=== PATIENT | female | born 1965 | race Caucasian/White ===

== ENCOUNTER → 2017-02-17 | Outpatient (CLI) | payer OTHER ==
--- NOTE | 2017-02-17 13:36 | REP ---
REASON: Known Farley aneurysm status post coiling procedure. COMPARISON: 05/24/2015. There is low signal seen in the tip of the basilar artery consistent with deployment of intravascular coiling. There is no evidence of an aneurysm. The examination is otherwise unchanged from the prior exam. IMPRESSION: Status post coiling procedure for Farley aneurysm as described above. Signed by Micheal Churchill DO 02/17/2017 04:30 P
== END ==
LOC: M RAD 09:57
PROVIDERS: ATTEND Neurological Surgery
DX: I67.1 Cerebral aneurysm, nonruptured (principal)

== ENCOUNTER → 2017-03-07 | Outpatient (CLI) | payer OTHER ==
--- NOTE | 2017-03-07 11:54 | REPMRS ---
Patient History The patient states she had a clinical breast exam in Family history of breast cancer in maternal grandmother. Digital Woman Screen Mammo: March 07, 2017 - Exam #: [id number] Bilateral CC and MLO view(s) were taken. Technologist: Esha Christian, Technologist Prior study comparison: February 05, 2011, digital bilateral screening mammo performed at [facility]. FINDINGS: The breast tissue is extremely dense which could obscure a lesion on mammography. There is no evidence of cancer on this mammogram. No significant changes when compared with prior studies. ASSESSMENT: BI-RADS/ACR category 2 mammogram. Benign finding(s). Given the dense breast parenchyma and family history, MRI of the breasts should be considered. Recommendation Routine screening mammogram of both breasts in 1 year (for women over age 40). This mammogram was interpreted with the aid of an FDA-approved computer-aided dectection system. Electronically Signed By: Nj Roberts MD 03/07/17 [id number]
== END ==
LOC: M WHC 08:25
PROVIDERS: ATTEND Nurse Practitioner Women's Health
DX: Z12.31 Encounter for screening mammogram for malignant neoplasm of breast (principal); Z80.3 Family history of malignant neoplasm of breast; R92.2 Inconclusive mammogram

== ENCOUNTER → 2017-03-07 | Outpatient (REF) | payer OTHER | LOC: M SFHCWAGY 09:14 | PROVIDERS: ATTEND Nurse Practitioner Women's Health | DX: Z12.4 Encounter for screening for malignant neoplasm of cervix (principal) ==

== ENCOUNTER → 2017-06-06 | Outpatient (REF) | payer OTHER | LOC: M LAB REF 17:14 | PROVIDERS: ATTEND Otolaryngology | DX: D10.0 Benign neoplasm of lip (principal) ==

== ENCOUNTER → 2018-11-13 | Outpatient (CLI) | payer BC ==
--- NOTE | 2018-11-13 13:02 | REP ---
MR CERVICAL SPINE WITHOUT CONTRAST: HISTORY: Spondylosis. COMPARISON: 05/12/2015. A disc bulge is present at the C4-5 level. There is moderate effacement of the thecal sac without spinal cord compression. Uncinate process hypertrophy is present on the left. This produces moderate narrowing of the left C4 neural foramen. The right C4 neural foramen is patent. A disc bugle with associated osteophyte formation is present at the C5-6 level. There is a minimal spinal cord compression. Bilateral uncinate process hypertrophy is present. This produces mild narrowing of the C5 neural foramina. A disc bulge is present at the C6-7 level. There is minimal effacement of the thecal sac without spinal cord compression. The C6 neural foramina are patent. There is no other disc bulge or herniation. The remaining neural foramina are patent. The spinal cord is normal in signal intensity. The central canal is seen at the C6-7 level. The C4-5 and C5-6 intervertebral discs are decreased in height consistent with disc degeneration. Normal signal intensity is present in the cervical vertebral bodies. IMPRESSION: There is cervical spondylosis at the C4-5 through C6-7 levels most significant at the C5-6 level where there is minimal spinal cord compression. The foraminal narrowing at the C4-5 level and disc bulge at the C6-7 level are new findings. Electronically Signed by Sylvester Mcgill MD 11/13/2018 01:04 P
== END ==
LOC: M PLARAD 10:37
PROVIDERS: ATTEND Physician Assistant
DX: M50.20 Other cervical disc displacement, unspecified cervical region (principal); M25.78 Osteophyte, vertebrae; M47.892 Other spondylosis, cervical region

== ENCOUNTER → 2019-01-01 | Outpatient (CLI) | payer BC ==
--- NOTE | 2019-01-01 12:36 | REPMRS ---
Patient History The patient states she had a clinical breast exam in 12/2018. Patient is postmenopausal. Family history of breast cancer at age 50 or over in maternal grandmother, breast cancer at age 50 or over in mother. No Hormone Replacement Therapy 3D TOMOSYNTHESIS WAS PERFORMED. Digital Woman Screen Mammo: January 01, 2019 - Exam #: [id number] Bilateral CC and MLO view(s) were taken. Technologist: Suzan Hidalgo, Technologist Prior study comparison: March 07, 2017, digital woman screen mammo performed at [facility]. February 05, 2011, digital bilateral screening mammo performed at [facility]. FINDINGS: The breast tissue is extremely dense which could obscure a lesion on mammography. There is no evidence of cancer on this mammogram. Assessment: BI-RADS/ACR category 2 mammogram. Benign Findings. Recommendation Routine screening mammogram of both breasts in 1 year (for women over age 40). This mammogram was interpreted with the aid of an FDA-approved computer-aided dectection system. THE LIFETIME RISK OF BREAST CANCER IS 23.8%, THEREFORE SUPPLEMENTAL SCREENING MRI OF THE BREASTS IS RECOMMENDED. Electronically Signed By: Nj Roberts MD 01/01/19 [id number]
== END ==
LOC: M WHC 11:13
PROVIDERS: ATTEND Nurse Practitioner Women's Health
DX: Z12.31 Encounter for screening mammogram for malignant neoplasm of breast (principal); Z78.0 Asymptomatic menopausal state

== ENCOUNTER → 2019-02-02 | Outpatient (REF) | payer BC ==
[2019-02-02 13:41] LABS: C REACTIVE PROTEIN QUANTITATIV < 0.30 MG/DL (0.00-0.30); RHEUMATOID FACTOR QUANT < 10.0 IU/ML (<15.0)
[2019-02-11 00:08] LABS: ANTINUCLEAR ANTIBODIES DIRECT Negative (Negative); HLA-B27 Negative (.); Lyme Disease IgG/IgM Antibodie <0.91 ISR (0.00-0.90); Lyme Disease IgM Ab Quantitati <0.80 index (0.00-0.79)
== END ==
LOC: M LABDRAW1 12:04
PROVIDERS: ATTEND Physician Assistant
DX: M47.812 Spondylosis without myelopathy or radiculopathy, cervical region (principal)

== ENCOUNTER → 2019-03-17 | Outpatient (REF) ==
--- NOTE | 2019-03-17 14:24 | REP ---
Right knee five views: There are no comparisons. There is chondrocalcinosis suggestive of CPPD. Mineralization and joint spaces are otherwise unremarkable. There is no joint effusion. Impression: Chondrocalcinosis, otherwise negative right knee. Electronically Signed by Nj Pearce MD 03/17/2019 02:16 P
== END ==
LOC: M SMT 13:56
PROVIDERS: ATTEND Internal Medicine
DX: M51.36 Other intervertebral disc degeneration, lumbar region (principal)

== ENCOUNTER → 2020-02-17 | Outpatient (CLI) | payer BC | LOC: M WHC 11:24 | PROVIDERS: ATTEND Nurse Practitioner Women's Health | DX: Z12.31 Encounter for screening mammogram for malignant neoplasm of breast (principal); Z80.3 Family history of malignant neoplasm of breast ==

== ENCOUNTER → 2020-12-09 | Outpatient (CLI) | payer BC, MEDICAID | LOC: M LABSMTC 09:00 | PROVIDERS: ATTEND Neurological Surgery | DX: Z01.812 Encounter for preprocedural laboratory examination (principal); I67.1 Cerebral aneurysm, nonruptured ==

== ENCOUNTER → 2021-06-20 | Outpatient (CLI) | payer OTHER ==
--- NOTE | 2021-06-20 10:13 | REPMRS ---
Patient History The patient states she had a clinical breast exam in May 2021. Family history of breast cancer at age 50 or over in maternal grandmother, breast cancer at age 50 or over in mother. No Hormone Replacement Therapy Tomosynthesis is performed. Volpara breast density is c. Patient states no breast complaints today. Patient has signed MRS History Sheet. Digital Woman Screen Mammo: June 20, 2021 - Exam #: [id number] Bilateral CC and MLO view(s) were taken. Technologist: Kaylynn Doe, Technologist Prior study comparison: February 17, 2020, bilateral digital woman screen mammo performed at [facility]. January 01, 2019, bilateral digital woman screen mammo performed at [facility]. FINDINGS: The breast tissue is extremely dense which could obscure a lesion on mammography. There has been no change in the appearance of the mammogram from the prior studies. There is a large amount of residual fibroglandular tissue which is fairly symmetric. There is no interval development of dominant mass, areas of architectural distortion, or clustered microcalcification typical of malignancy. No significant changes when compared with prior studies. Assessment: BI-RADS/ACR category 1 mammogram. Negative Mammogram. Recommendation Routine screening mammogram in 1 year (for women over age 40). This mammogram was interpreted with the aid of an FDA-approved computer-aided dectection system. The Lifetime Breast Cancer Risk is estimated at 22.3%. Yearly supplemental screening MRI of the breasts is recommended for patients with an elevated lifetime risk of breast cancer of 20% or greater, in addition to annual screening mammography, staggered every 6 months. Electronically Signed By: Nj Roberts MD 06/20/21 1012
== END ==
LOC: M WHC 08:22
PROVIDERS: ATTEND Nurse Practitioner Women's Health
DX: Z12.31 Encounter for screening mammogram for malignant neoplasm of breast (principal); Z80.3 Family history of malignant neoplasm of breast

== ENCOUNTER → 2021-06-20 | Outpatient (REF) | payer OTHER | LOC: M SFHCWAGY 13:25 | PROVIDERS: ATTEND Nurse Practitioner Women's Health | DX: Z12.4 Encounter for screening for malignant neoplasm of cervix (principal) ==

== ENCOUNTER → 2022-01-22 | Outpatient (REF) | LOC: M PLAIMG 14:34 | PROVIDERS: ATTEND Internal Medicine | DX: Z11.52 Encounter for screening for COVID-19 (principal) ==

== ENCOUNTER → 2022-07-02 | Outpatient (CLI) | payer OTHER | LOC: M SOG 15:10 | PROVIDERS: ATTEND Orthopaedic Surgery Hand Surgery | DX: M79.645 Pain in left finger(s) (principal); M19.042 Primary osteoarthritis, left hand ==

== ENCOUNTER → 2022-08-02 | Outpatient (CLI) | payer OTHER | LOC: M PLARAD 07-19 09:27 → M PLAIMG 09:51 | PROVIDERS: ATTEND Orthopaedic Surgery Hand Surgery | DX: M20.032 Swan-neck deformity of left finger(s) (principal) ==

== ENCOUNTER → 2022-08-29 | Outpatient (REF) | payer OTHER | LOC: M PLALAB 15:47 | PROVIDERS: ATTEND Advanced Practice Midwife | DX: Z12.4 Encounter for screening for malignant neoplasm of cervix (principal) ==

== ENCOUNTER → 2022-08-29 | Outpatient (CLI) | payer OTHER | LOC: M WHC 11:01 | PROVIDERS: ATTEND Advanced Practice Midwife | DX: Z12.31 Encounter for screening mammogram for malignant neoplasm of breast (principal); Z80.3 Family history of malignant neoplasm of breast ==

== ENCOUNTER → 2023-09-02 | Outpatient (REF) | payer OTHER | LOC: M PLALAB 15:53 | PROVIDERS: ATTEND Advanced Practice Midwife | DX: Z12.4 Encounter for screening for malignant neoplasm of cervix (principal) ==

== ENCOUNTER → 2023-09-02 | Outpatient (CLI) | payer OTHER | LOC: M WHC 14:33 | PROVIDERS: ATTEND Advanced Practice Midwife | DX: Z12.31 Encounter for screening mammogram for malignant neoplasm of breast (principal) ==

== ENCOUNTER → 2024-03-09 | Outpatient (CLI) | payer OTHER ==
[~2024-03-09] MED LIST: PROHANCE 279.3MG/ML 5ML VIAL ONE
== END ==
LOC: M PLAIMG 08:37
PROVIDERS: ATTEND Advanced Practice Midwife
DX: R92.2 Inconclusive mammogram (principal); Z80.3 Family history of malignant neoplasm of breast
CPT/HCPCS: 77049; A9576

== ENCOUNTER → 2024-09-13 | Outpatient (REF) | payer OTHER | LOC: M SFHCDERM 17:17 | PROVIDERS: ATTEND Physician Assistant | DX: D23.72 Other benign neoplasm of skin of left lower limb, including hip (principal) ==